=== PATIENT | female | born 1975 | race Caucasian/White ===

== ENCOUNTER 2017-11-25 21:16 | Emergency (ER) | payer BC ==
[~2017-11-25 21:16] MED LIST: CIPR250S4 PO; ESCI10TA PO; NYST5S PO
== END 2017-11-25 21:25 | disposition left against medical advice (07) ==
LOC: EMS 21:17
DX: F10.10 Alcohol abuse, uncomplicated (principal); Z53.21 Procedure and treatment not carried out due to patient leaving prior to being seen by health care provider